=== PATIENT | male | born 1970 | race African-American/Black ===

== ENCOUNTER 2020-01-23 09:30 | Day surgery (SDC) | payer OTHER ==
[~2020-01-23] VITALS: Ht 170.2 cm; Wt 76.7 kg
[2020-01-23] MEDS ORDERED: LIDOCAINE 2% 100 MG/5 ML UJET TP ONE (10:58)
[2020-01-23] MEDS ORDERED: MIDAZOLAM 2 MG/2 ML VIAL ONE (10:58)
[2020-01-23] MEDS ORDERED: fentaNYL 0.05 MG/ML VIAL ONE (10:58)
== END 2020-01-23 13:05 | disposition home or self-care (01) ==
LOC: MMU 09:30 → MDS 09:30
PROVIDERS: ATTEND Internal Medicine Gastroenterology
DX: K62.5 Hemorrhage of anus and rectum (principal); D12.4 Benign neoplasm of descending colon; K29.80 Duodenitis without bleeding; K21.0 Gastro-esophageal reflux disease with esophagitis; K29.70 Gastritis, unspecified, without bleeding; B96.81 Helicobacter pylori [H. pylori] as the cause of diseases classified elsewhere; E66.3 Overweight; Z68.28 Body mass index [BMI] 28.0-28.9, adult
CPT/HCPCS: 36415; 43239; 45385; 86677; J2250; J3010